=== PATIENT | female | born 1950 ===

== ENCOUNTER 2017-03-05 12:51 | Emergency (ER) | payer MEDICARE, MEDICAID ==
--- NOTE | 2017-03-05 13:32 | ED PDOC ---
Syncope/Near Syncope/Dizziness Time Seen by Provider: 03/05/17 12:59 Chief Complaint (Nursing): Dizziness/Lightheaded History Per: Patient Onset/Duration Of Symptoms: Other (3 weeks) Current Symptoms Are (Timing): Still Present Activity At Onset Of Symptoms: Change In Head Position Associated Symptoms Preceding Syncopal Episode: Vertigo Seizure Or Post-ictal Symptoms: None Possible Causative Factor(s): Vertigo Fall Associated With With Symptoms: No Severity: Moderate Additional Complaint(s): Dizziness x 3 weeks, feels like room is spinning. Worse when changing head position. Denies chest pain or palpitations. Denies headache. No LOC. No focal weakness or numbness. Past Medical History Vital Signs: Last Vital Signs Temp 98.2 F 03/05/17 12:56 Pulse 78 03/05/17 12:56 Resp 20 03/05/17 12:56 BP 120/82 03/05/17 12:56 Pulse Ox 99 03/05/17 12:56 - Medical History PMH: Hiatal Hernia, Hypercholesterolemia - Surgical History Surgical History: Appendectomy - Family History Family History: States: Unknown Family Hx - Immunization History Hx Tetanus Toxoid Vaccination: No Hx Influenza Vaccination: No Hx Pneumococcal Vaccination: No - Home Medications Home Medications: Ambulatory Orders Medication Instructions Recorded Hydroxyzine Pamoate [Vistaril] 25 mg PO Q8 #12 capsule 03/05/17 Meclizine HCl [Meclizine HCl] 1 tab PO BID 03/05/17 - Allergies Allergies/Adverse Reactions: Allergies Allergy/AdvReac Type Severity Reaction Status Date / Time No Known Allergies Allergy Verified 04/29/15 09:48 Review of Systems ROS Statement: Except As Marked, All Systems Reviewed And Found Negative Neurological: Positive for: Dizziness Physical Exam - Reviewed Nursing Documentation Reviewed: Yes Vital Signs Reviewed: Yes - Physical Exam Appears: Positive for: Non-toxic, No Acute Distress Head Exam: Positive for: ATRAUMATIC, NORMAL INSPECTION, NORMOCEPHALIC Skin: Positive for: Normal Color, Warm, DRY Eye Exam: Positive for: EOMI, Normal appearance, PERRL ENT: Positive for: Normal ENT Inspection Neck: Positive for: Normal, Painless ROM Cardiovascular/Chest: Positive for: Regular Rate, Rhythm Respiratory: Positive for: CNT, Normal Breath Sounds Gastrointestinal/Abdominal: Positive for: Normal Exam, Bowel Sounds, Soft Back: Positive for: Normal Inspection Extremity: Positive for: Normal ROM Neurologic/Psych: Positive for: Alert, Oriented - Laboratory Results Result Diagrams: 03/05/17 13:44 03/05/17 13:44 - ECG O2 Sat by Pulse Oximetry: 99 Disposition - Clinical Impression Clinical Impression: Vertigo - Patient ED Disposition Is Patient to be Admitted: No Counseled Patient/Family Regarding: Studies Performed, Diagnosis, Need For Followup, Rx Given - Disposition Referrals: Edmund Myers MD [Staff Provider] - Disposition: Routine/Home Disposition Time: 15:20 Condition: FAIR Prescriptions: Hydroxyzine Pamoate [Vistaril] 25 mg PO Q8 #12 capsule Instructions: Vertigo (ED) Forms: [facility] (Kyrgyz) Print Language: NEPALI
[2017-03-05 14:01] LABS: BASO % 0.4 % (0.0-2.0); EOS # 0.2 K/uL (0.0-0.7); EOS % 1.6 % (0.0-4.0); HEMATOCRIT 43.5 % (34.0-47.0); LYMPH # 3.3 K/uL (1.0-4.3); LYMPH % 31.6 % (20.0-40.0); MEAN CELL VOLUME 89.3 fl (81.0-99.0); MEAN CORPUSCULAR HEMOGLOBIN 29.9 pg (27.0-31.0); MEAN CORPUSCULAR HGB CONC 33.5 g/dL (33.0-37.0); MEAN PLATELET VOLUME 9.1 fl (7.2-11.7); MONO # 0.8 K/uL (0.0-0.8); MONO % 7.4 % (0.0-10.0); NEUT # 6.1 K/uL (1.8-7.0); RED CELL DISTRIBUTION WIDTH 13.5 % (11.5-14.5); WHITE BLOOD COUNT 10.4 K/uL (4.8-10.8)
[2017-03-05 14:02] LABS: ALB/GLOB RATIO 1.2 (1.0-2.1); ALKALINE PHOSPHATASE 113 U/L (38-126); ALT/SGPT 54 U/L (9-52); AST/SGOT 27 U/L (14-36); BILIRUBIN,TOTAL 0.5 mg/dl (0.2-1.3); BLOOD UREA NITROGEN 15 mg/dl (7-17); CALCIUM 10.1 mg/dL (8.4-10.2); CARBON DIOXIDE 26 mmol/L (22-30); CHLORIDE 104 mmol/L (98-107); GFR AFRICAN-AMERICAN > 60; GLUCOSE,RANDOM 93 mg/dL (65-105); POTASSIUM 4.2 MMOL/L (3.6-5.0); SODIUM 141 mmol/l (132-148)
[2017-03-05 14:55] VITALS: BP 116/71; PULSE 67; RESP 16; TEMP 98.3
[2017-03-05 15:22] VITALS: O2SAT 99
--- NOTE | 2017-03-05 15:52 | CT ---
PROCEDURE: CT HEAD WITHOUT CONTRAST. HISTORY: r/o bleed COMPARISON: None available. TECHNIQUE: Axial computed tomography images were obtained through the head/brain without intravenous contrast. Radiation dose: Total exam DLP = 10 55.30 mGy-cm. This CT exam was performed using one or more of the following dose reduction techniques: Automated exposure control, adjustment of the mA and/or kV according to patient size, and/or use of iterative reconstruction technique. FINDINGS: HEMORRHAGE: No acute parenchymal, subarachnoid or extra-axial hemorrhage. BRAIN: Mild diffuse/confluent chronic periventricular white matter ischemic changes are seen extending peripherally into the deep white matter both cerebral hemispheres. . No obvious parenchymal nor extra-axial mass or collection seen on this noncontrast study. Moderate generalized volume loss. VENTRICLES: No evidence of obstructive hydrocephalus. CALVARIUM: There are no acute calvarial fractures. . The multiple tiny skin surface calcifications are seen within the frontal region. . PARANASAL SINUSES: The visualized paranasal sinuses are clear. MASTOID AIR CELLS: Visualized mastoid air complexes well-developed and currently well-aerated. OTHER FINDINGS: There are small elliptical shaped calcifications (left larger than right) seen within the subcutaneous tissues adjacent to to the anterior inferior margins of both external auditory canals. Clinic correlation recommended. IMPRESSION: No acute intracranial hemorrhage. Mild moderate chronic white matter ischemic changes. Moderate volume loss.
--- NOTE | 2017-03-05 20:40 | CARD ---
APPROVED REPORT EKG Measurement Heart [id number] <Conclusion> Normal sinus rhythm Normal ECG
== END 2017-03-05 16:29 | disposition home or self-care (01) ==
LOC: H.ER 12:51
DX: R42 Dizziness and giddiness (principal)